=== PATIENT | female | born 1985 | race Caucasian/White ===

== ENCOUNTER 2018-05-20 16:28 | Emergency (ER) | payer OTHER ==
[~2018-05-20] VITALS: Ht 170.2 cm; Wt 95.2 kg
[~2018-05-20 16:28] MED LIST: ACET500; ACYC200 PO; AMOX500 PO; ANTOXYBENA LEFTEAR; CIPR500 PO; CYCL10 PO; DIAZ5 PO; HYDACE5 PO; IBUP800 PO; LABE100 PO; LOPE2C PO; METO10 PO; METPRE4DP PO; OXYACE10 PO; OXYACE5T PO; PROM25 PO; PSECHLCR PO; Percocet 5-3251 EACH PO; RXTRAM50 PO; TRAM50 PO; Verotin-Gr Cap1 EACH PO
[2018-05-20 17:06] LABS: BASOPHILS ABSOLUTE AUTO 0.01 K/mm3 (0.00-0.23); BASOPHILS PERCENT AUTO 0 % (0-2); EOSINOPHILS ABSOLUTE AUTO 0.02 K/mm3 (0.00-0.68); EOSINOPHILS PERCENT AUTO 0 % (0-6); Hematocrit 43.5 % (33.0-51.0); IMMATURE GRAN ABSOLUTE AUTO 0.03 K/mm3 (0.00-0.10); IMMATURE GRAN PERCENT AUTO 0 % (0-1); LYMPHOCYTES ABSOLUTE AUTO 0.68 K/mm3 (0.84-5.20); LYMPHOCYTES PERCENT AUTO 7 % (21-46); MONOCYTES ABSOLUTE AUTO 0.36 K/mm3 (0.16-1.47); MONOCYTES PERCENT AUTO 4 % (4-13); Mean Corpuscular HGB 28.6 pg (26.0-34.0); Mean Corpuscular HGB Conc 34.5 g/dL (31.5-36.5); Mean Corpuscular Volume 83 fL (80-100); Mean Platelet Volume 10.6 fL (9.1-12.4); NEUTROPHILS PERCENT AUTO 89 % (41-73); Platelet Count 225 K/mm3 (150-400); RDW Coefficient Variation 14.1 % (11.7-14.2); RDW Standard Deviation 42.1 fL (35.1-46.3); Red Blood Cell Count 5.24 M/mm3 (3.80-5.20)
[2018-05-20 17:19] LABS: Alanine Aminotransfer (ALT/SGP 17 U/L (12-78); Albumin, Blood 3.2 g/dL (3.4-5.0); Albumin/Globulin Ratio 0.8 (0.8-1.8); Alk Phos 79 U/L (50-136); Anion Gap 9 mmol/L (6-16); Aspartate Aminotrans (AST/SGOT 9 U/L (12-37); Bilirubin, Total 0.5 mg/dL (0.1-1.0); Blood Urea Nitrogen 10 mg/dL (8-24); Bun/Creatinine Ratio 18.9 (12.0-20.0); CO2, Blood 22 mmol/L (21-32); Calcium, Blood 8.6 mg/dL (8.5-10.1); Chloride, Blood 103 mmol/L (98-108); Creatinine, Blood 0.53 mg/dL (0.40-1.00); Globulin, Blood 4.1 g/dL (2.2-4.0); Glomerular Filtration Rate >60 (60-); Glucose, Blood 100 mg/dL (70-99); Potassium, Blood 3.5 mmol/L (3.5-5.5); Sodium, Blood 134 mmol/L (136-145); Total Protein, Blood 7.3 g/dL (6.4-8.2)
[2018-05-20 17:25] LABS: Source, Urine Clean Catch
[2018-05-20 17:31] LABS: Blood, Urine 1+ (Neg); Glucose Qualitative, Urine Neg (Neg); Ketones, Urine 4+ (Neg); Leukocyte Esterase, Urine 1+ (Neg); Nitrite, Urine Neg (Neg); Protein, Urine 2+ (Neg); Specific Gravity, Urine 1.025 (1.003-1.022); Urobilinogen, Urine NORM (Normal)
[2018-05-20 17:50] LABS: Appearance, Urine Hazy (Clear); Bilirubin, Urine 1+ (Neg); Color, Urine Yellow (P-Yellow)
[2018-05-20 17:51] LABS: Bacteria Many /hpf; Squamous Epithelial Cells Many /hpf (Few)
[2018-05-20 17:52] LABS: Mucus Light (0-Heavy)
[2018-05-20] MEDS ORDERED: LABE100 PO (19:09)
[2018-05-20] MEDS ORDERED: ONDA4ODT MM (20:13)
== END 2018-05-20 20:31 | disposition home or self-care (01) ==
LOC: ER 16:28
PROVIDERS: Physician Assistant
DX: O99.611 Diseases of the digestive system complicating pregnancy, first trimester (principal); K52.9 Noninfective gastroenteritis and colitis, unspecified; O99.281 Endocrine, nutritional and metabolic diseases complicating pregnancy, first trimester; E86.0 Dehydration; Z3A.11 11 weeks gestation of pregnancy; Z88.5 Allergy status to narcotic agent; Z79.899 Other long term (current) drug therapy
CPT/HCPCS: 36415; 80053; 81001; 83690; 85025; 87086; 96361; 96374; 99283-25; J2405; J7030

== ENCOUNTER → 2018-05-22 | Outpatient (CLI) | payer OTHER ==
[~2018-05-22] MED LIST changes: +ONDA4ODT MM
[2018-05-25 03:37] LABS: CHLAMYDIA TRACHOMATIS, NAA Negative (Negative); NEISSERIA GONORRHOEAE, NAA Negative (Negative)
== END ==
LOC: LAB SHORT 15:33 → LAB 15:33
PROVIDERS: Obstetrics & Gynecology
DX: Z34.81 Encounter for supervision of other normal pregnancy, first trimester (principal)
CPT/HCPCS: 87491; 87591

== ENCOUNTER 2018-11-01 14:36 | Emergency (ER) | payer OTHER ==
[2018-11-26] MEDS ORDERED: PRENATAL TABLE1 EAC2 PO (10:17)
== END 2018-11-01 14:50 | disposition left against medical advice (07) ==
LOC: ER 14:36
DX: Z53.21 Procedure and treatment not carried out due to patient leaving prior to being seen by health care provider (principal); R11.10 Vomiting, unspecified

== ENCOUNTER 2018-11-26 10:27 | Inpatient (IN) | payer OTHER ==
[~2018-11-26] VITALS: Ht 170.2 cm; Wt 108.9 kg
[~2018-11-26 10:27] MED LIST changes: +PRENATAL TABLE1 EAC2 PO
[2018-11-26 10:29] LABS: BASOPHILS ABSOLUTE AUTO 0.03 K/mm3 (0.00-0.23); BASOPHILS PERCENT AUTO 0 % (0-2); EOSINOPHILS ABSOLUTE AUTO 0.22 K/mm3 (0.00-0.68); EOSINOPHILS PERCENT AUTO 2 % (0-6); Hematocrit 34.8 % (33.0-51.0); IMMATURE GRAN PERCENT AUTO 1 % (0-1); LYMPHOCYTES ABSOLUTE AUTO 2.28 K/mm3 (0.84-5.20); LYMPHOCYTES PERCENT AUTO 21 % (21-46); MONOCYTES PERCENT AUTO 6 % (4-13); Mean Corpuscular HGB 25.9 pg (26.0-34.0); Mean Corpuscular HGB Conc 31.6 g/dL (31.5-36.5); Mean Corpuscular Volume 82 fL (80-100); Mean Platelet Volume 11.2 fL (9.1-12.4); NEUTROPHILS ABSOLUTE AUTO 7.64 K/mm3 (1.96-9.15); NEUTROPHILS PERCENT AUTO 70 % (41-73); Platelet Count 225 K/mm3 (150-400); RDW Coefficient Variation 13.9 % (11.7-14.2); RDW Standard Deviation 41.1 fL (35.1-46.3); Red Blood Cell Count 4.24 M/mm3 (3.80-5.20); White Blood Cell Count 10.87 K/mm3 (4.00-11.30)
[2018-11-28 08:07] LABS: PCO2 Cord - Venous 41.8 mmHg (40-50); PO2 Cord - Venous 29.3 mmHg (28-32); pH Umbilical Cord - Venous 7.36 (7.26-7.35)
[2018-11-28 08:10] LABS: PCO2 Cord - Arterial 45.2 mmHg (40-50); PO2 Cord - Arterial 28.5 mmHg (16-20); pH Cord - Arterial 7.35 (7.28-7.35)
--- NOTE | 2018-11-28 08:54 | NUR ---
FF, LOCHIA SMALL, PATIENT HAS NO PAIN AT THIS TIME.
[2018-11-29 05:41] LABS: BASOPHILS ABSOLUTE AUTO 0.04 K/mm3 (0.00-0.23); BASOPHILS PERCENT AUTO 0 % (0-2); EOSINOPHILS PERCENT AUTO 4 % (0-6); Hematocrit 27.7 % (33.0-51.0); Hemoglobin 8.8 g/dL (11.5-16.0); IMMATURE GRAN ABSOLUTE AUTO 0.08 K/mm3 (0.00-0.10); IMMATURE GRAN PERCENT AUTO 1 % (0-1); LYMPHOCYTES ABSOLUTE AUTO 2.56 K/mm3 (0.84-5.20); LYMPHOCYTES PERCENT AUTO 25 % (21-46); MONOCYTES PERCENT AUTO 7 % (4-13); Mean Corpuscular HGB 25.3 pg (26.0-34.0); Mean Corpuscular HGB Conc 31.8 g/dL (31.5-36.5); Mean Corpuscular Volume 80 fL (80-100); Mean Platelet Volume 11.4 fL (9.1-12.4); NEUTROPHILS ABSOLUTE AUTO 6.36 K/mm3 (1.96-9.15); NEUTROPHILS PERCENT AUTO 63 % (41-73); Platelet Count 174 K/mm3 (150-400); RDW Coefficient Variation 14.2 % (11.7-14.2); RDW Standard Deviation 40.5 fL (35.1-46.3); Red Blood Cell Count 3.48 M/mm3 (3.80-5.20); White Blood Cell Count 10.14 K/mm3 (4.00-11.30)
--- NOTE | 2018-11-29 21:36 | NUR ---
IV REMOVED, SITE WNL.
[2018-11-30] MEDS ORDERED: IBU800 MG PO (08:58)
[2018-11-30] MEDS ORDERED: Percocet 5-3251 EACH PO (08:58)
--- NOTE | 2018-11-30 10:17 | NUR ---
MOTHER WAITING FOR RIDE FOR DISCHARGE. VERBALIZES UNDERSTANDING OF DC INSTRUCTIONS AND FOLLOW UP APPOINTMENTS. NO QUESTIONS OR CONCERNS. STABLE. CARING FOR SELF AND BABY INDEPENDANTLY.
== END 2018-11-30 12:35 | disposition home or self-care (01) | DRG 787 ==
LOC: BC 11-28 05:57
PROVIDERS: ADMIT Obstetrics & Gynecology
PROC: 6A550ZT Pheresis of Cord Blood Stem Cells, Single (ICD-10-PCS; 2018-11-28)
PROC: 10D00Z1 Extraction of Products of Conception, Low, Open Approach (ICD-10-PCS; principal; 2018-11-28 07:30)
DX: O34.211 Maternal care for low transverse scar from previous cesarean delivery (principal); O10.92 Unspecified pre-existing hypertension complicating childbirth; Z87.59 Personal history of other complications of pregnancy, childbirth and the puerperium; O99.013 Anemia complicating pregnancy, third trimester; O32.1XX0 Maternal care for breech presentation, not applicable or unspecified; O40.3XX0 Polyhydramnios, third trimester, not applicable or unspecified; O16.4 Unspecified maternal hypertension, complicating childbirth; Z3A.39 39 weeks gestation of pregnancy; Z37.0 Single live birth
CPT/HCPCS: 36415; 82803; 85025; 86850; 86900; 86901; J0690; J1885; J2590; J2765; J3010; J7120

== ENCOUNTER → 2024-12-21 | Outpatient (CLI) | payer OTHER ==
[~2024-12-21] MED LIST changes: +IBU800 MG PO
[2024-12-22 13:13] LABS: Chlamydia Trachomatis Urine NOT DETECTED (NOT DETECT); Neisseria Gonorrhoea Urine NOT DETECTED (NOT DETECT)
== END ==
LOC: LAB SHORT 19:01 → LAB 19:01
PROVIDERS: Internal Medicine
DX: R30.0 Dysuria (principal)
CPT/HCPCS: 87491; 87591